=== PATIENT | male | born 1975 | race Caucasian/White ===

== ENCOUNTER 2016-07-18 13:46 | Emergency (ER) | payer MEDICAID, OTHER ==
[2016-07-18 13:51] VITALS: O2SAT 98
[2016-07-18] MEDS ORDERED: Sodium Chloride 0.9% 1,000 ML IV ONE (14:38)
--- NOTE | 2016-07-18 15:01 | RAD ---
HISTORY: cough COMPARISON: No prior. TECHNIQUE: Chest PA and lateral FINDINGS: LUNGS: The lungs are clear. PLEURA: No significant pleural effusion identified. No pneumothorax apparent. CARDIOVASCULAR: Normal. OSSEOUS STRUCTURES: No significant abnormalities. VISUALIZED UPPER ABDOMEN: Normal. OTHER FINDINGS: None. IMPRESSION: No active pulmonary disease.
--- NOTE | 2016-07-18 15:06 | RAD ---
PROCEDURE: Bilateral Knee Radiographs. HISTORY: b/l knee pain COMPARISON: None. FINDINGS: BONES: Right Knee: Normal. No fracture. Left Knee: Normal. No fracture. JOINTS: Right Knee: Normal. No osteoarthritis. Left knee: Normal. No osteoarthritis. SOFT TISSUES: Right Knee: Normal. Left Knee: Normal. JOINT EFFUSION: Right Knee: None. Left Knee: None. OTHER FINDINGS: None. IMPRESSION: Normal examination.
[2016-07-18 15:15] LABS: BASO % 0.6 % (0.0-2.0); EOS # 0.1 K/uL (0.0-0.7); EOS % 1.3 % (0.0-4.0); HEMATOCRIT 43.2 % (35.0-51.0); LYMPH # 0.8 K/uL (1.0-4.3); LYMPH % 12.5 % (20.0-40.0); MEAN CELL VOLUME 85.8 fL (80.0-94.0); MEAN CORPUSCULAR HEMOGLOBIN 28.8 pg (27.0-31.0); MEAN CORPUSCULAR HGB CONC 33.6 g/dL (33.0-37.0); MEAN PLATELET VOLUME 10.2 fL (7.2-11.7); MONO # 0.4 K/uL (0.0-0.8); MONO % 6.4 % (0.0-10.0); RED CELL DISTRIBUTION WIDTH 14.5 % (11.5-14.5); WHITE BLOOD COUNT 6.7 K/uL (4.8-10.8)
--- NOTE | 2016-07-18 15:29 | C.PDOC ---
History Of Present Illness 40-year-old male, past medical history includes HIV (not on any HAART), presents to the emergency department accompanied by sister with complaints of non-traumatic B/L knee pain, chronically for the past 1.5 years, that has worsened over the past two days. Patient notes associated chronic vomiting (x1/ day) for the past several months every day, and several episodes of diarrhea daily x2 years. Pt also c/o productve cough x 1 month. He denies fever, chest pain, SOB, abdominal pain. Time Seen by Provider: 07/18/16 14:03 Chief Complaint (Nursing): Lower Extremity Problem/Injury History Per: Patient, Family History/Exam Limitations: no limitations Onset/Duration Of Symptoms: Persistent Severity: Moderate Past Medical History Reviewed: Historical Data, Nursing Documentation, Vital Signs Vital Signs: Last Vital Signs Temp 98.3 F 07/18/16 17:41 Pulse 81 07/18/16 17:41 Resp 16 07/18/16 17:41 BP 123/85 07/18/16 17:41 Pulse Ox 98 07/18/16 17:49 - Medical History PMH: HIV - [facility] Procedures CLOSURE SKIN & SUBCUTANEOUS NEC (11/18/14) Family History: States: No Known Family Hx - Social History Hx Alcohol Use: Yes Hx Substance Use: No - Immunization History Hx Tetanus Toxoid Vaccination: No Review Of Systems Except As Marked, All Systems Reviewed And Found Negative. Constitutional: Negative for: Fever, Chills Cardiovascular: Negative for: Chest Pain, Palpitations Respiratory: Positive for: Cough. Negative for: Shortness of Breath Gastrointestinal: Positive for: Vomiting, Diarrhea. Negative for: Abdominal Pain Genitourinary: Negative for: Dysuria, Hematuria Musculoskeletal: Positive for: Leg Pain. Negative for: Back Pain Skin: Negative for: Rash Physical Exam - Physical Exam Appears: Well, Non-toxic, No Acute Distress, Chronically Ill (thin appearing) Skin: Warm, Dry, No Rash Head: Normacephalic Eye(s): bilateral: Normal Inspection Oral Mucosa: Moist Tongue: Other (no thrush) Lips: Normal Appearing Neck: Normal, Normal ROM Chest: Symmetrical Cardiovascular: Rhythm Regular Respiratory: Normal Breath Sounds, No Rales, No Rhonchi, No Wheezing Gastrointestinal/Abdominal: Normal Exam, Bowel Sounds, Soft, No Tenderness Extremity: Normal ROM, No Pedal Edema, No Calf Tenderness, Capillary Refill (< 2 sec all digits ), No Deformity, Other (mild diffuse TTP at B/L knees) Extremity: Bilateral: Atraumatic, Normal Color And Temperature, Normal ROM Neurological/Psych: Oriented x3 ED Course And Treatment - Laboratory Results Result Diagrams: 07/18/16 15:08 07/18/16 15:08 O2 Sat by Pulse Oximetry: 98 (RA) Pulse Ox Interpretation: Normal - Other Rad KNEE XRAYS X-Ray: Viewed By Me, Read By Radiologist Interpretation: Accession No. : [id number]. Patient Name / ID : KANE GONZALEZ / [id number]. Exam Date : 07/18/2016 14:43:21 ( Approved ). Study Comment : Sex / Age : M / 40Y. Creator : Bonnie Appiah MD. Dictator : Bonnie Appiah MD. Manager Qa : Loom Inspector : Bonnie Appiah MD. Approver2 : Report Date : 07/18/2016 15:05:19. My Comment : . PROCEDURE: Bilateral Knee Radiographs. HISTORY: b/l knee pain. COMPARISON: None. FINDINGS: BONES: Right Knee: Normal. No fracture. Left Knee: Normal. No fracture. JOINTS: Right Knee: Normal. No osteoarthritis. Left knee: Normal. No osteoarthritis. SOFT TISSUES: Right Knee: Normal. Left Knee: Normal. JOINT EFFUSION: Right Knee: None. Left Knee: None. OTHER FINDINGS: None. IMPRESSION: Normal examination. CXR X-Ray: Viewed By Me, Read By Radiologist Interpretation: Accession No. : [id number]. Patient Name / ID : KANE GONZALEZ / [id number]. Exam Date : 07/18/2016 14:41:18 ( Approved ). Study Comment : Sex / Age : M / 40Y. Creator : Bonnie Appiah MD. Dictator : Bonnie Appiah MD. Manager Qa : Loom Inspector : Bonnie Appiah MD. Approver2 : Report Date : 07/18/2016 14:59:51. My Comment : . HISTORY: cough. COMPARISON: No prior. TECHNIQUE: Chest PA and lateral. FINDINGS: LUNGS: The lungs are clear. PLEURA: No significant pleural effusion identified. No pneumothorax apparent. CARDIOVASCULAR: Normal. OSSEOUS STRUCTURES: No significant abnormalities. VISUALIZED UPPER ABDOMEN: Normal. OTHER FINDINGS: None. IMPRESSION: No active pulmonary disease. Progress Note: Bloodwork,UA, CXR, Knee xrays ordered and reviewed. Patient given iV NS bolus. Patient admits that his knee pain also radiates down into legs, and feels like tingling/pins and needles type pain. 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 PO Tylenol #3 and gabapentin given. Reevaluation Time: 17:40 Reassessment Condition: Improved (On reassessment, patient is comfortable and states he feels better. CXR (-) for infiltrates, KNee Xrays also (-). No obvious HIV related infections on physical exam, CXR, and vitals are normal. Some time was spent with patient trying to convince him to follow up in the medical clinic and begain HAART. HIV test and viral load ordered, and pending at discharge - patient understands he needs to follow up in the clinic for results. He was given Rx for gabapentin, naprosyn, tylenol #3. Patient understands the need for timely followup, and he was instructed to return to ED if symptoms worsen.) Disposition Counseled Patient/Family Regarding: Studies Performed, Diagnosis, Need For Followup, Rx Given - Disposition Referrals: [facility] [Outside] [facility] [Outside] Disposition: HOME/ ROUTINE Disposition Time: 17:40 Condition: STABLE Additional Instructions: FOLLOW UP WITH MEDICAL CLINIC IN 1-2 DAYS USE MEDICATIONS DIRECTED RETURN TO ER IF SYMPTOMS WORSEN Prescriptions: Naproxen [Naprosyn Tab] 375 mg PO BID PRN #20 tab PRN Reason: pain Gabapentin [Neurontin] 100 mg PO TID #35 cap Acetaminophen with Codeine [Tylenol with Codeine #3 Tablet] 1 each PO Q6 PRN # 15 tablet PRN Reason: pain Ondansetron [Zofran Odt] 4 mg PO Q8 PRN #15 odt PRN Reason: Nausea/Vomiting Instructions: HIV Infection (ED), Knee Pain (ED), Leg Pain (ED) Forms: General Discharge Instructions Print Language: WELSH - Clinical Impression Clinical Impression: HIV (human immunodeficiency virus infection), Knee pain, bilateral, Leg pain, Neuropathy, Nausea - Scribe Statement The provider has reviewed the documentation as recorded by the Alfonso Celis All medical record entries made by the Leandroibgerry were at my direction and personally dictated by me. I have reviewed the chart and agree that the record accurately reflects my personal performance of the history, physical exam, medical decision making, and the department course for this patient. I have also personally directed, reviewed, and agree with the discharge instructions and disposition.
[2016-07-18 15:41] LABS: CHLORIDE 98 mmol/L (98-107); POTASSIUM 4.9 mmol/L (3.6-5.2); SODIUM 142 mmol/L (132-148)
[2016-07-18 15:43] LABS: BILIRUBIN,TOTAL 0.8 mg/dL (0.2-1.3); GFR AFRICAN-AMERICAN > 60
[2016-07-18 15:44] LABS: ALB/GLOB RATIO 0.9 (1.0-2.1); ALKALINE PHOSPHATASE 120 U/L (38-126); ALT/SGPT 108 U/L (21-72); AST/SGOT 269 U/L (17-59); BLOOD UREA NITROGEN 6 mg/dL (9-20); CALCIUM 8.7 mg/dl (8.6-10.4); CARBON DIOXIDE 30 mmol/L (22-30); GLUCOSE,RANDOM 98 mg/dL (75-110); TOTAL PROTEIN 8.4 g/dL (6.3-8.3)
[2016-07-18 16:39] LABS: RBC URINE < 1 /hpf (0-3); URINE BILIRUBIN NEGATIVE (NEGATIVE); URINE BLOOD NEGATIVE (NEGATIVE); URINE COLOR Yellow (YELLOW); URINE GLUCOSE (UA) NORMAL (Normal); URINE KETONE NEGATIVE (NEGATIVE); URINE LEUKOCYTE ESTERASE NEG Leu/uL (Negative); URINE PROTEIN NEGATIVE (NEGATIVE); WBC URINE < 1 /hpf (0-5)
[2016-07-18] MEDS ORDERED: Acetaminophen-Codeine 300/30 mg Tab PO STA (17:31)
[2016-07-18] MEDS ORDERED: Acetaminophen-Codeine 300/30 mg Tab PO ONE (17:38)
[2016-07-18 17:41] VITALS: BP 123/85; PULSE 81; RESP 16; TEMP 98.3
== END 2016-07-18 17:47 | disposition home or self-care (01) ==
LOC: C.ER 13:46
DX: B20 Human immunodeficiency virus [HIV] disease (principal); M25.562 Pain in left knee; M25.561 Pain in right knee; G62.9 Polyneuropathy, unspecified
CPT/HCPCS: 71020; 73562; 80053; 81001; 83615; 85025; 86703; 87040; 87086; 87536; 96360; 99285; J7040

== ENCOUNTER 2016-10-10 15:38 | Inpatient (IN) | payer MEDICAID, OTHER ==
[2016-10-10 15:51] VITALS: BMI 22.8
[2016-10-10] MEDS ORDERED: Naloxone 0.4 mg/ml Inj (Adult) IVP STA (15:51)
[2016-10-10] MEDS ORDERED: Sodium Chloride 0.9% 1,000 ML IV ONE (15:51)
[2016-10-10] MEDS ORDERED: Naloxone 0.4 mg/ml Inj (Adult) ONE (15:54)
[2016-10-10] MEDS ORDERED: Sodium Chloride 0.9% 1,000 ML ONE (16:05)
[2016-10-10 16:06] LABS: BASO # 0.1 K/uL (0.0-0.2); BASO % 1.3 % (0.0-2.0); EOS # 0.1 K/uL (0.0-0.7); HEMATOCRIT 40.9 % (35.0-51.0); LYMPH # 0.9 K/uL (1.0-4.3); LYMPH % 19.3 % (20.0-40.0); MEAN CELL VOLUME 87.5 fL (80.0-94.0); MEAN CORPUSCULAR HEMOGLOBIN 29.1 pg (27.0-31.0); MEAN CORPUSCULAR HGB CONC 33.3 g/dL (33.0-37.0); MONO # 0.5 K/uL (0.0-0.8); MONO % 9.8 % (0.0-10.0); NRBC % 0.1 % (0.0-2.0); RED CELL DISTRIBUTION WIDTH 15.2 % (11.5-14.5); WHITE BLOOD COUNT 4.9 K/uL (4.8-10.8)
[2016-10-10 16:22] LABS: CHLORIDE 106 mmol/L (98-107); POTASSIUM 3.7 mmol/L (3.6-5.2); SODIUM 142 mmol/L (132-148)
[2016-10-10 16:24] LABS: BILIRUBIN,TOTAL 0.6 mg/dL (0.2-1.3); GFR AFRICAN-AMERICAN > 60
[2016-10-10 16:25] LABS: ALKALINE PHOSPHATASE 104 U/L (38-126); ALT/SGPT 58 U/L (21-72); AST/SGOT 124 U/L (17-59); BLOOD UREA NITROGEN 5 mg/dL (9-20); CALCIUM 7.8 mg/dl (8.6-10.4); CARBON DIOXIDE 23 mmol/L (22-30); GLUCOSE,RANDOM 83 mg/dL (75-110); TOTAL PROTEIN 8.1 g/dL (6.3-8.3)
[2016-10-10 16:36] LABS: ALCOHOL SERUM 337 mg/dl (0-10)
[2016-10-10 16:42] LABS: URINE BILIRUBIN NEGATIVE (NEGATIVE); URINE BLOOD NEGATIVE (NEGATIVE); URINE COLOR Straw (YELLOW); URINE GLUCOSE (UA) NORMAL (Normal); URINE KETONE NEGATIVE (NEGATIVE); URINE LEUKOCYTE ESTERASE NEG Leu/uL (Negative); URINE PROTEIN NEGATIVE (NEGATIVE); URINE UROBILINOGEN NORMAL mg/dL (0.2-1.0)
[2016-10-10] MEDS ORDERED: Multivitamin (MVI) 10 ML, Thiamine 100 MG, Folic Acid 1 MG in Sodium Chloride 0.9% 1,00... IV STA (17:19)
--- NOTE | 2016-10-10 17:43 | C.PDOC ---
Time Seen by Provider: 10/10/16 15:48 Chief Complaint (Nursing): Substance Abuse Past Medical History Vital Signs: Last Vital Signs Temp 97.2 F L 10/10/16 15:47 Pulse 107 H 10/10/16 17:23 Resp 20 10/10/16 17:23 BP 104/65 10/10/16 17:23 Pulse Ox 98 10/10/16 17:23 - Medical History PMH: Anxiety, Depression, HIV, HTN - [facility] Procedures CLOSURE SKIN & SUBCUTANEOUS NEC (11/18/14) Family History: States: Unknown Family Hx - Social History Hx Alcohol Use: Yes Hx Substance Use: No - Immunization History Hx Tetanus Toxoid Vaccination: No ED Course And Treatment - Laboratory Results Result Diagrams: 10/10/16 15:57 10/10/16 15:57 O2 Sat by Pulse Oximetry: 98
--- NOTE | 2016-10-10 17:47 | C.PDOC ---
History Of Present Illness Family called 911 because he took "a bunch" of his 15mg Remeron pills in front of them in an intentional overdose. They estimate around 7 pills to "half a bottle". Time Seen by Provider: 10/10/16 15:48 History Per: Patient, Family History/Exam Limitations: clinical condition, intoxication Onset/Duration Of Symptoms: Hrs (1) Current Symptoms Are (Timing): Still Present Suicide/Self Injury Attempted (Context): Ingestion Ingestion Of Substance: Remeron Modifying Factor(s): Alcohol Severity: Severe Past Medical History Reviewed: Historical Data, Nursing Documentation, Vital Signs Vital Signs: Last Vital Signs Temp 97.2 F L 10/10/16 15:47 Pulse 107 H 10/10/16 17:23 Resp 20 10/10/16 17:23 BP 104/65 10/10/16 17:23 Pulse Ox 98 10/10/16 17:23 - Medical History PMH: Anxiety, Depression, HIV, HTN - [facility] Procedures CLOSURE SKIN & SUBCUTANEOUS NEC (11/18/14) Family History: States: Unknown Family Hx - Social History Hx Alcohol Use: Yes Hx Substance Use: No - Immunization History Hx Tetanus Toxoid Vaccination: No Review Of Systems Review Of Systems: ROS cannot be obtained secondary to pt's inabilty to answer questions. Physical Exam - Physical Exam Appears: Other (Pt is obtunded) Skin: Normal Color, Warm, Dry Head: Atraumatic, Normacephalic Eye(s): bilateral: PERRL (small pupils) Neck: Normal ROM, No Midline Cervical Tenderness, No Step Off Deformity, Supple Chest: Symmetrical Cardiovascular: Rhythm Regular Respiratory: Normal Breath Sounds, No Accessory Muscle Use Gastrointestinal/Abdominal: Soft Extremity: No Deformity Neurological/Psych: Eyes Open With Command, Other (Moving all extremities) Pain Response: Withdraws With Pain ED Course And Treatment - Laboratory Results Result Diagrams: 10/10/16 15:57 10/10/16 15:57 Interpretation Of Abnormal: Elevatd alcohol level. ECG: Interpreted By Me, Viewed By Me ECG Rhythm: Sinus Rhythm, Nonspecific Changes Rate From EC O2 Sat by Pulse Oximetry: 87 (on RA) Pulse Ox Interpretation: Abnormal - Radiology CXR: Interpreted by Me, Viewed By Me CXR Interpretation: Yes: No Acute Disease Progress Note: Pt d/w Lynn at [facility]. She recommended supportive care, but states the the half-like of Remeron is long (20 hours). - Physician Consult Information Physician Contacted: Steven Martinez (ICU) Outcome Of Conversation: He accepted pt to ICU. Progress - Interventions Interventions:: Observation, Intravenous fluid, Oxygen - Data Reviewed Data Reviewed: Lab, Diagnostic imaging, EKG, Old records - Patient Status Patient status: Partially improved - Critical Care Citical Care: Excluding Proc Time Critical Care Time: 45 minutes - Continuity of Care Discussed patient case with:: Family-HIPPA compliant, ED Nurse, On-call PMD-pt unassigned Discussed pt. case with clothing consultant/specialty: Pulmonary/Crit. Care - Patient Plan Patient Plan: Admission, ICU Disposition Discussed With Dr.: Edmund Robbins Comment: He accepted pt on his service. Doctor Will See Patient In The: Hospital Counseled Patient/Family Regarding: Studies Performed, Diagnosis - Disposition Disposition: HOSPITALIZED Disposition Time: 17:51 Condition: GUARDED - Clinical Impression Clinical Impression: Intentional overdose of drug in tablet form, Alcohol intoxication
[2016-10-10] MEDS: Potassium Chloride 10 MEQ in Dextrose 5%/0.9% NS 1,000 ML IV SCH ×2 (20:15→22:25)
--- NOTE | 2016-10-10 20:37 | CP.PCM.CON ---
History of Present Illness - History of Present Illness History of Present Illness: Attending: Itzel Shaffer MD PCP: Eyad Maravilla MD Reason for consult: critical care Management Chief Complaint: Overdose on Remeron HPI: The hx was obtained from the Patient's family and the medical records. He is a 41 years old male with Hx of HIV not on HAART Depression with previous Suicide attempt and multiple ED visits for Alcohol Intoxication, Brought to the ED because of ingesting a handful of Remeron 15mg tablets, approximately 7 tablets. The patient was drinking alcohol prior to this. In the ED he was only responsive to painful stimuli. PMH: Anxiety, Depression; HIV; HTN; Bilateral Knee pains; Neuropathy PSH: No known surgical History SH; Alcohol abuse; light smoker; Substance abuse; Live with family FH: Unknown family hx Allergies: NKDA Review of Systems - Review of Systems Systems not reviewed;Unavailable: Intoxicated Review of Systems: Review of systems is limited because of patient being Unresponsive Past Patient History - Past Medical History & Family History Past Medical History?: Yes - Past Social History Smoking Status: Light Smoker < 10 Cigarettes Daily Chewing Tobacco Use: No Cigar Use: No Alcohol: > 2 Drinks/Day Home Situation {Lives}: With Family - CARDIAC Hx Hypertension: Yes - PULMONARY Hx Respiratory Disorders: No - NEUROLOGICAL Hx Neurological Disorder: No - HEENT Hx HEENT Problems: No - RENAL Hx Chronic Kidney Disease: No - ENDOCRINE/METABOLIC Hx Endocrine Disorders: No - HEMATOLOGICAL/ONCOLOGICAL Hx Human Immunodeficiency Virus (HIV): Yes - INTEGUMENTARY Hx Dermatological Problems: No - MUSCULOSKELETAL/RHEUMATOLOGICAL Hx Falls: Yes - GASTROINTESTINAL Hx Gastrointestinal Disorders: No - GENITOURINARY/GYNECOLOGICAL Hx Genitourinary Disorders: No - PSYCHIATRIC Hx Anxiety: Yes Hx Depression: Yes Hx Substance Use: Yes - SURGICAL HISTORY Hx Surgeries: No - ANESTHESIA Hx Anesthesia: No Meds Allergies/Adverse Reactions: Allergies Allergy/AdvReac Type Severity Reaction Status Date / Time No Known Allergies Allergy Verified 10/10/16 16:00 - Medications Medications: Current Medications Enoxaparin Sodium (Lovenox) 40 mg SC DAILY SONYA Multivitamins/Vitamin C 10 ml/Thiamine HCl 100 mg/ Folic Acid 1 mg/ Sodium Chloride 1,011.2 mls @ 250 mls/hr IV .Q4H3M STA Stop: 10/10/16 21:21 Last Admin: 10/10/16 18:30 Dose: 250 mls/hr Potassium Chloride 10 meq/ (Dextrose/Sodium Chloride) 1,005 mls @ 150 mls/hr IV .Q6H42M [facility] Stop: 10/11/16 09:38 Physical Exam - Constitutional Appears: No Acute Distress Additional comments: Appears sleeping. - Head Exam Head Exam: ATRAUMATIC, NORMAL INSPECTION, NORMOCEPHALIC - Eye Exam Pupil Exam: Miosis Additional comments: No spontaneous opening of eyes nor to painful stimuli - ENT Exam ENT Exam: Mucous Membranes Moist, Normal External Ear Exam - Neck Exam Neck exam: Positive for: Normal Inspection. Negative for: Lymphadenopathy - Respiratory Exam Respiratory Exam: Clear to Auscultation Bilateral. absent: Rales, Rhonchi, Wheezes - Cardiovascular Exam Cardiovascular Exam: REGULAR RHYTHM, RRR, +S1, +S2. absent: Gallop - GI/Abdominal Exam GI & Abdominal Exam: Hypoactive Bowel Sounds, Soft. absent: Mass, Organomegaly - Rectal Exam Rectal Exam: Deferred - Extremities Exam Extremities exam: Positive for: normal inspection. Negative for: joint swelling , pedal edema - Back Exam Back exam: NORMAL INSPECTION - Neurological Exam Additional comments: No Spontaneous opening of eyes even with painful stimuli. Unresponsive to verbal commands. Responds to painful stimuli., Pupils still pin pointed with sluggish reaction to light. no facial droop, DTR conserved. No focial neurological findings. A Doc score of 6 - Skin Skin Exam: Dry, Intact, Normal Color, Warm Results - Vital Signs Recent Vital Signs: Last Vital Signs Temp 97.3 F L 10/10/16 19:00 Pulse 98 H 10/10/16 19:00 Resp 20 10/10/16 19:00 BP 117/73 10/10/16 18:41 Pulse Ox 98 10/10/16 19:00 - Labs Result Diagrams: 10/10/16 15:57 10/10/16 15:57 - Impressions Impression: NSR 109/min - Imaging and Cardiology Chest x-ray Status: Image reviewed by me Additional comment: No infiltrated Assessment & Plan - Assessment and Plan (Free Text) Assessment: #. Drug Overdose #. Alcoholic Intoxication #. Depressive disorder #. HIV+ve Plan: 41 years old male with Hx of HIV not on HAART Depression with previous Suicide attempt and multiple ED visits for Alcohol Intoxication, Brought to the ED because of ingesting a handful of Remeron 15mg tablets, approximately 7 tablets. In the ED he was only responsive to painful stimuli. #. Drug Overdose with Remeron in a Suicide Attempt - Admit ot ICU - Cardiac monitoring/ Seizure Precaution - IV Fluids NS at 150mls/hr - Psychiatry consult with Dr Ngo - follow electrolytes #. Alcoholic Intoxication - Banana bag with Thiamine/MV/folic acid - Patient will need IV Ativan for Agitation PRN #. Depressive disorder - Psychiatry on consult #. HIV+ve - Patient is not on HAART medication #. Stress Ulcer prophylaxis with Pepcid #. DVT Prophylaxis with Lovenox #. Code Status: Full - Date & Time Date: 10/10/16 Time: 20:37
[2016-10-11] MEDS: Potassium Chloride 10 MEQ in Dextrose 5%/0.9% NS 1,000 ML IV SCH ×2 (02:57→05:47)
[2016-10-11 07:18] LABS: BASO % 1.4 % (0.0-2.0); EOS # 0.1 K/uL (0.0-0.7); HEMATOCRIT 40.1 % (35.0-51.0); LYMPH # 0.4 K/uL (1.0-4.3); LYMPH % 13.7 % (20.0-40.0); MEAN CELL VOLUME 88.8 fL (80.0-94.0); MEAN CORPUSCULAR HEMOGLOBIN 29.4 pg (27.0-31.0); MEAN CORPUSCULAR HGB CONC 33.1 g/dL (33.0-37.0); MEAN PLATELET VOLUME 9.2 fL (7.2-11.7); MONO # 0.4 K/uL (0.0-0.8); MONO % 10.9 % (0.0-10.0); NRBC % 0.1 % (0.0-2.0); RED CELL DISTRIBUTION WIDTH 14.9 % (11.5-14.5); WHITE BLOOD COUNT 3.2 K/uL (4.8-10.8)
[2016-10-11 07:34] LABS: CHLORIDE 112 mmol/L (98-107); POTASSIUM 4.3 mmol/L (3.6-5.2); SODIUM 144 mmol/L (132-148)
[2016-10-11 07:36] LABS: BILIRUBIN,TOTAL 0.6 mg/dL (0.2-1.3); GFR AFRICAN-AMERICAN > 60
[2016-10-11 07:37] LABS: ALB/GLOB RATIO 0.9 (1.0-2.1); ALKALINE PHOSPHATASE 93 U/L (38-126); ALT/SGPT 47 U/L (21-72); AST/SGOT 120 U/L (17-59); BLOOD UREA NITROGEN 3 mg/dL (9-20); CALCIUM 7.6 mg/dl (8.6-10.4); CARBON DIOXIDE 25 mmol/L (22-30); TOTAL PROTEIN 6.8 g/dL (6.3-8.3)
[2016-10-11 07:38] LABS: ALCOHOL SERUM 11 mg/dl (0-10)
[2016-10-11 08:05] LABS: GLUCOSE,RANDOM 314 mg/dL (75-110)
[2016-10-11] MEDS ORDERED: Enoxaparin 40 mg Syringe SC SCH (10:00)
[2016-10-11] MEDS ORDERED: ODEFSEY PO SCH ×3 (11:00→13:15)
[2016-10-11] MEDS ORDERED: Tmp-Smz 800 mg-160 mg DS Tab PO SCH (12:15)
[2016-10-11] MEDS ORDERED: Albuterol HFA 90 mcg/actuation (8 g) INH PRN (12:15)
--- NOTE | 2016-10-11 12:28 | RAD ---
PROCEDURE: CHEST RADIOGRAPH, 1 VIEW HISTORY: Overdosed COMPARISON: 07/18/2016 FINDINGS: LUNGS: Clear. PLEURA: No pneumothorax or pleural fluid seen. CARDIOVASCULAR: Normal. OSSEOUS STRUCTURES: No significant abnormalities. VISUALIZED UPPER ABDOMEN: Normal. OTHER FINDINGS: None. IMPRESSION: No active disease.
--- NOTE | 2016-10-11 13:56 | CP.PCM.HP ---
History of Present Illness - History of Present Illness History of Present Illness: COMPREHENSIVE HISTORY & PHYSICAL EXAM HPI PT DEPRESSED AND DRANK ALCOHOL AND HALF A BOTTLE OF REMERON , 15 MG. PT WAS DROSWSY IN ER WITH N RESPIRATION HAS PREVIOUS H/O DO PAST HIST. HIV PERSONAL HIST: Smoking. N Alcohol. YES Allergy N Travel_ - . FAMILY HIST : ROS : PT DWOSY P/E: Constitutional: Appears stated age and in no apparent distress. Head: Normocephalic. Ears: External ear canals patent without inflammation. Tympanic membranes intact with normal light reflex and landmark. Eyes: Pupils are central, bilaterally equal, symmetrical and reacts to light with normal movements and no icterus or pallor. Nose: External nares are patent. Mucosa is pink Mouth-Throat: Good general appearance and condition. No post-pharyngeal/oropharyngeal erythema and tonsillar hypertrophy. Good dental hygiene. Neck-Lymphatic: Neck is supple with normal ROM, no thyromegaly, lymph nodes or masses. JVD is normal with no carotid bruit. Lungs: Clear to percussion and auscultation with bilateral normal air entry. Cardiovascular: S1 and S2 are normal with no murmurs, gallops and rub. GI Exam: No hepatomegaly. Abdomen is soft and non-tender. No Organomegaly , masses or hernias are evident and bowel sounds are normal and active. Neurology: Higher function and all cranial nerves intact, with no gross motor or sensory deficit. Superficial and deep reflexes are normal with downwards planters. No cerebellar deficit with normal gait. Musculoskeletal: No tender spots with normal curvature of the spine with no swelling or restricted ROM of the small and large joints. Extremities: Homans sign absent. Intact pulses with no pitting edema, calf tenderness or skin color changes. Skin: No rash, eruptions or abnormal skin pigmentation LAB/RADIOLOGY: ASSESMENT : DO , REMERON WITH INTACT REPIRATION HIV PLAN: MONITOR IN ICU PER POISON CONTROL PROTOCOL Present on Admission - Present on Admission Any Indicators Present on Admission: No Past Patient History - Past Medical History & Family History Past Medical History?: Yes - Past Social History Smoking Status: Light Smoker < 10 Cigarettes Daily Chewing Tobacco Use: No Cigar Use: No Alcohol: > 2 Drinks/Day Home Situation {Lives}: With Family - CARDIAC Hx Hypertension: Yes - PULMONARY Hx Respiratory Disorders: No - NEUROLOGICAL Hx Neurological Disorder: No - HEENT Hx HEENT Problems: No - RENAL Hx Chronic Kidney Disease: No - ENDOCRINE/METABOLIC Hx Endocrine Disorders: No - HEMATOLOGICAL/ONCOLOGICAL Hx Human Immunodeficiency Virus (HIV): Yes - INTEGUMENTARY Hx Dermatological Problems: No - MUSCULOSKELETAL/RHEUMATOLOGICAL Hx Falls: Yes - GASTROINTESTINAL Hx Gastrointestinal Disorders: No - GENITOURINARY/GYNECOLOGICAL Hx Genitourinary Disorders: No - PSYCHIATRIC Hx Anxiety: Yes Hx Depression: Yes Hx Substance Use: Yes - SURGICAL HISTORY Hx Surgeries: No - ANESTHESIA Hx Anesthesia: No Meds Allergies/Adverse Reactions: Allergies Allergy/AdvReac Type Severity Reaction Status Date / Time No Known Allergies Allergy Verified 10/10/16 16:00 Results - Vital Signs Recent Vital Signs: Last Vital Signs Temp 98.4 F 10/11/16 12:00 Pulse 95 H 10/11/16 13:41 Resp 15 10/11/16 13:41 BP 146/105 H 10/11/16 13:41 Pulse Ox 100 10/11/16 13:41 - Labs Result Diagrams: 10/11/16 07:11 10/11/16 07:11 Labs: Laboratory Results - last 24 hr 10/10/16 10/11/16 10/11/16 22:56 07:11 07:11 WBC 3.2 L RBC 4.52 Hgb 13.3 Hct 40.1 MCV 88.8 MCH 29.4 MCHC 33.1 RDW 14.9 H Plt Count 151 MPV 9.2 Neut % (Auto) 71.0 Lymph % (Auto) 13.7 L Towns % (Auto) 10.9 H Eos % (Auto) 3.0 Baso % (Auto) 1.4 Neut # 2.3 Lymph # 0.4 L Towns # 0.4 Eos # 0.1 Baso # 0.0 Sodium 144 Potassium 4.3 Chloride 112 H Carbon Dioxide 25 Anion Gap 11 BUN 3 L Creatinine 0.6 L Est GFR ( Amer) > 60 Est GFR (Non-Af Amer) > 60 Random Glucose 314 H Calcium 7.6 L Magnesium 1.6 Total Bilirubin 0.6 AST 120 H ALT 47 Alkaline Phosphatase 93 Total Protein 6.8 Albumin 3.2 L Globulin 3.5 Albumin/Globulin Ratio 0.9 L Alcohol, Quantitative 11 H
[2016-10-11 16:16] VITALS: BP 142/95
[2016-10-11 16:17] VITALS: TEMP 94.4
[2016-10-11 17:27] VITALS: PULSE 87
--- NOTE | 2016-10-11 18:38 | PCM.PSYCH ---
Initial Psychiatric Evaluation - Initial Psychiatric Evaluation Legal Status: Capacity Chief Complaint (in patient's own words): I WAS NOT TRYING TO KILL MYSELF,WHY AM I IN ICU? Patient's Reaction to Hospitalization: i DON'T NEED TO BE IN THE HOSPITAL, History of Present Illness and Precipitating Events: PT IS A 41BYEAR OLD MALE WHO LIVES WITH HIS MOTHER AND IS CURRENTLY UNEMPLOYED, PT STATED THAT HE DRANK SEVERAL PINTS OF ALCOHOL AND TOOK SEVERAL REMERON BECAUSE HE WANTED TO GET HIGH. PT STATES TAT HE HAS DRANK ALCOHOL AND TAKING XANAX TO GET HIGH IN THE PAST. PT IS PRESCRIBED NEURONTIN AND REMERON BY HIS PCP. PT RELATES THAT HE BUYS THE XANAX OFF THE STREET. PT STATES THAT HE STARTING DRINKING ALCOHOL A TEENAGER BUT IT DID NOT BECOME A PROBLEM UNTIL HE WAS 25 YEARS OLD. PT ALSO DECLARES THAT HE DOES NOT DRINK ALCOHOL EVERY DAY BUT GOES ON BINGES AND THEN DOES NOT DRINK FOR DAYS OR WEEKS, PT STATES THAT ON A BAD DAY HE DRINKS 2 PINTS AND ON BAD DAYS HE DRINKS 3 PINTS. PT HAS BEEN ARRESTED FOR PARAPHERNALIA; HOWEVER, HE HAS NEVER BEEN CONVICTED. PT HAS WORKED A [employer] IN THE PAST. PT HAS MHIV. HE STATED THAT HE HAD BEEN TAKING HIS ANTIVIRALS EVEN THOUGH IN THE MEDICAL RECORD IT SAYS HE WAS NOT. PT HAS AN OLDER SISTER. HIS FATHER IS . PER PT, MANY MATERNAL RELATIVES HAVE A SUBSTANCE ABUSE PROBLEM. PT WANTS TO BE DISCHARGED. IN MY OPINION WITH A FAIR DEGREES OF MEDICAL CERTAINTY LISA MIDDLETON HAS CAPACITY TO MAKE MEDICAL DECISIONS AND CURRENTLY HE IS NOT A DANGER TO HIMSELF OR OTHERS. HOWEVER THIS IS NO GUARANTEE FOR THE FUTURE. THE BEST PREDICATOR OF FUTURE BEHAVIOR IS PAST BEHAVIOR Current Medications: Active Medications Generic Name Dose Route Start Last Admin Trade Name Freq PRN Reason Stop Dose Admin Albuterol 1 puff 10/11/16 12:15 10/11/16 15:45 Ventolin Hfa 90 Mcg/Actuation (8 G) INH 1 puff RQ4 PRN Administration Shortness of Breath Enoxaparin Sodium 40 mg 10/11/16 10:00 10/11/16 10:47 Lovenox SC 40 mg DAILY SONYA Administration Famotidine 20 mg 10/10/16 22:00 10/11/16 10:48 Pepcid IVP 20 mg Q12 SONYA Administration Gabapentin 300 mg 10/11/16 14:00 10/11/16 17:14 Neurontin PO 300 mg TID SONYA Administration Home Med 1 tab 10/11/16 13:15 10/11/16 14:02 Patient's Own Medication PO 1 tab DAILY SONYA Administration Lorazepam 1 mg 10/11/16 12:15 10/11/16 17:15 Ativan IVP 1 mg Q4H PRN Administration Agitation Metoprolol Tartrate 50 mg 10/11/16 12:15 10/11/16 17:14 Lopressor PO 50 mg BID SONYA Administration Trimethoprim/Sulfamethoxazole 1 tab 10/11/16 12:15 10/11/16 12:30 Bactrim Ds Tab PO 1 tab Q12H SONYA Administration Past Psychiatric History - Past Psychiatric History Prior Professional Help: PER HISTORY NOF PRESENT ILLNESS Pertinent Medical Hx (Current Medical&Sleep Prob, Allergies): Allergies Allergy/AdvReac Type Severity Reaction Status Date / Time No Known Allergies Allergy Verified 10/10/16 16:00 Gabapentin [Neurontin] 100 mg PO TID #35 cap 07/18/16 Emtricitab/Rilpiviri/Tenof Ala [Odefsey Tablet] 1 each PO DAILY 10/10/16 Metoprolol Tartrate [Lopressor] 100 mg PO DAILY 10/10/16 Review of Systems - Constitutional Constitutional: Malaise - EENT Eyes: UNREMARKABLE Ears: UNREMARKABLE Nose/Mouth/Throat: UNREMARKABLE - Cardiovascular Cardiovascular: UNREMARKABLE - Respiratory Respiratory: UNREMARKABLE - Gastrointestinal Gastrointestinal: UNREMARKABLE - Musculoskeletal Additional comments: BILATERAL KNEE PROBLEMS - Integumentary Integumentary: UNREMARKABLE - Neurological Neurological: UNREMARKABLE - Psychiatric Psychiatric: UNREMARKABLE - Endocrine Endocrine: UNREMARKABLE - Hematologic/Lymphatic Hematologic: Other Additional comments: HIV+ Mental Status Examination - Personal Presentation Personal Presentation: Looks stated age - Affect Affect: Broad - Motor Activity Motor Activity: Calm - Reliability in Providing Information Reliability in Providing Information: Good - Speech Speech: Organized, Relevant, Coherent - Mood Mood: Neutral - Formal Thought Process Formal Thought Process: No Impairment - Obsessions/Compulsions Obsessions: None Compulsions: None - Cognitive Functions Orientation: Person, Place, Situation, Time Sensorium: Alert Attention/Concentration: Attentive Abstract Thinking: As evidence by literal perception of proverbs Estimate of Intelligence: Average Judgement: Intact, as evidence by: Good judgement Memory: Recent intact, as evidence by: Ability to recall events of the day, Remote intact, as evidenced by: Abilit to recall sig. life events - Risk Risk: Other - Strength & Assets Inventory Strength & Assets Inventory: Intelligence, Family support, Employment history - Limitations Limitations: Other DSM 5 DX - DSM 5 DSM 5 Diagnosis: MOOD DISORDER DUE TO A GENERAL MEDICAL CONDITION ALCOHOL USE DISORDER SUICIDALITY HIV STATUS - Recommended/Plan of Treatment Treatment Recommendations and Plan of Treatment: MOOD DISORDER DUE VTO A GENERAL MEDICAL CONDITION CONTINUE REMERON AND NEUROTIN ALCOHOL USE DISORDER ENCOURAGE SOBRIETY SUICIDALITY DISCONTINUE 1:1 HIV STATUS CONTINUE ANTIVIRALS Projected ELOS: PT WANTS TO LEAVE TODAY Prognosis: FAIR Discharge Plan and Discharge Criteria: PT IS BEIND DISCHARGED AGAINST MEDICAL ADVICE - Smoking Cessation Smoking Cessation Initiated: No
[2016-10-11 18:59] VITALS: RESP 20; O2SAT 97
--- NOTE | 2016-10-11 20:29 | CP.PCM.PN ---
Subjective - Date & Time of Evaluation Date of Evaluation: 10/11/16 Time of Evaluation: 20:29 - Subjective Subjective: Called by nurse informing of Patient's request to sign out against medical advise. Patient seen awake, alert, oriented stating that that he wanted to sign out and leave the hospital. He was advised to remain until tomorrow for some more cardiac monitoring. He refused. He was told of the possibility of Alcohol withdrawal symptoms, Tremors, Seizures , Delirium and the fact that he needs to follow up with Psychiatry. Psychiatry cleared him to be competent and so he was allowed to sign AMA. Chung Mckeon MD Hospitalist. Objective - Vital Signs/Intake and Output Vital Signs (last 24 hours): Temp Pulse Resp BP Pulse Ox 94.4 F L 87 20 142/95 H 97 10/11/16 16:00 10/11/16 18:13 10/11/16 18:13 10/11/16 15:41 10/11/16 17:50 Intake and Output: 10/11/16 10/12/16 18:59 06:59 Intake Total 1600 Output Total 2 Balance 1598 - Labs Labs: 10/11/16 07:11 10/11/16 07:11
== END 2016-10-11 19:00 | disposition left against medical advice (07) | DRG 449 ==
LOC: C.ER 15:38 → C.9I 17:53
PROVIDERS: ADMIT Internal Medicine Cardiovascular Disease; ATTEND Internal Medicine Cardiovascular Disease
PROC: HZ2ZZZZ Detoxification Services for Substance Abuse Treatment (ICD-10-PCS; principal; 2016-10-10)
DX: T43.022A Poisoning by tetracyclic antidepressants, intentional self-harm, initial encounter (principal); F06.30 Mood disorder due to known physiological condition, unspecified; F10.220 Alcohol dependence with intoxication, uncomplicated; I10 Essential (primary) hypertension; Z21 Asymptomatic human immunodeficiency virus [HIV] infection status; Y90.8 Blood alcohol level of 240 mg/100 ml or more; R40.0 Somnolence; F41.9 Anxiety disorder, unspecified; F32.9 Major depressive disorder, single episode, unspecified; F17.210 Nicotine dependence, cigarettes, uncomplicated

== ENCOUNTER 2016-11-25 21:31 | Inpatient (IN) | payer MEDICAID, OTHER ==
[2016-11-25 21:31] VITALS: BMI 22.8
--- NOTE | 2016-11-25 22:34 | C.PDOC ---
History Of Present Illness Patient presents to the ER as a prescreen for detox from ETOH, last drink was 2 hours. Denies physical complaints at this time. Time Seen by Provider: 11/25/16 22:33 Chief Complaint (Nursing): Substance Abuse History Per: Patient History/Exam Limitations: no limitations Onset/Duration Of Symptoms: Hrs Current Symptoms Are (Timing): Still Present Suicide/Self Injury Attempted (Context): None Modifying Factor(s): Alcohol Severity: None Pain Scale Rating Of: 0 Associated Symptoms: denies: Depression, Suicidal Thoughts, Suicidal Plan Involuntary Hold By: None Recent travel outside of the [place]: No Past Medical History Reviewed: Historical Data, Nursing Documentation, Vital Signs Vital Signs: Last Vital Signs Temp 97.7 F 11/25/16 21:58 Pulse 97 H 11/25/16 21:58 Resp 16 11/25/16 21:58 BP 111/75 11/25/16 21:58 Pulse Ox 95 11/26/16 00:53 - Medical History PMH: Anxiety, Depression, HIV, HTN Surgical History: No Surg Hx - [facility] CLOSURE SKIN & SUBCUTANEOUS NEC (11/18/14) DETOXIFICATION SERVICES FOR SUBSTANCE ABUSE TREATMENT (10/10/16) Family History: States: No Known Family Hx - Social History Hx Alcohol Use: Yes Hx Substance Use: Yes - Immunization History Hx Tetanus Toxoid Vaccination: No Review Of Systems Constitutional: Negative for: Fever, Chills Gastrointestinal: Negative for: Nausea, Vomiting, Diarrhea Physical Exam - Physical Exam Appears: Non-toxic Skin: Warm, Dry Oral Mucosa: Moist Chest: Symmetrical, No Tenderness Cardiovascular: Rhythm Regular, No Murmur Respiratory: No Rales, No Rhonchi, No Wheezing Gastrointestinal/Abdominal: Soft, No Tenderness Neurological/Psych: Oriented x3 ED Course And Treatment - Laboratory Results Result Diagrams: 11/25/16 22:41 11/25/16 22:41 O2 Sat by Pulse Oximetry: 95 (Room air) Pulse Ox Interpretation: Normal Progress Note: Crisis contacted. ED OBSERVATION Date of observation admission: 11/25/16 Time of observation admission: 23:40 - Observation admission statement Patient is being placed in observation because:: acute alcohol intoxication - Goals of Observation Goals of observation are:: detox, sobriety - Progress Note Progress Note: 11/25/16 23:40 vitals stable 11/26/16 00:53 no complaints Disposition Discussed With Dr.: Berenice Pinzon Comment: accepted the pt on his service and took over the care at 2:47 AM Doctor Will See Patient In The: Hospital Counseled Patient/Family Regarding: Studies Performed, Diagnosis - Disposition Disposition: HOSPITALIZED Disposition Time: 22:34 Condition: FAIR Forms: [facility] (Greek) - Clinical Impression Clinical Impression: Alcohol intoxication - Scribe Statement The provider has reviewed the documentation as recorded by the Scribgerry King All medical record entries made by the Scribe were at my direction and personally dictated by me. I have reviewed the chart and agree that the record accurately reflects my personal performance of the history, physical exam, medical decision making, and the department course for this patient. I have also personally directed, reviewed, and agree with the discharge instructions and disposition. Decision To Admit - Pt Status Changed To: Hospital Disposition Of: Inpatient - Admit Certification Admit to Inpatient:: After my assessment, the patient will require hospitalization for at least two midnights. This is because of the severity of symptoms shown, intensity of services needed, and/or the medical risk in this patient being treated as an outpatient. - InPatient: Physician Admission Certification: I certify that this patient requires 2 or more midnights of care for the following reason:: After my assessment, the patient will require hospitalization for at least two midnights. This is because of the severity of symptoms shown, intensity of services needed, and/or the medical risk in this patient being treated as an outpatient. - . Bed Request Type: Detox Admitting Physician: Berenice Pinzon Patient Diagnosis: Alcohol intoxication
[2016-11-25 22:44] LABS: BASO % 1.3 % (0.0-2.0); EOS # 0.2 K/uL (0.0-0.7); EOS % 5.4 % (0.0-4.0); HEMATOCRIT 41.3 % (35.0-51.0); LYMPH % 28.1 % (20.0-40.0); MEAN CELL VOLUME 89.9 fL (80.0-94.0); MEAN CORPUSCULAR HEMOGLOBIN 30.6 pg (27.0-31.0); MEAN CORPUSCULAR HGB CONC 34.1 g/dL (33.0-37.0); MONO # 0.4 K/uL (0.0-0.8); MONO % 10.8 % (0.0-10.0); NRBC % 0.1 % (0.0-2.0); RED CELL DISTRIBUTION WIDTH 14.2 % (11.5-14.5); WHITE BLOOD COUNT 3.7 K/uL (4.8-10.8)
[2016-11-25 22:47] LABS: URINE BILIRUBIN NEGATIVE (NEGATIVE); URINE BLOOD NEGATIVE (NEGATIVE); URINE COLOR Straw (YELLOW); URINE GLUCOSE (UA) NORMAL (Normal); URINE KETONE NEGATIVE (NEGATIVE); URINE LEUKOCYTE ESTERASE TRACE Leu/uL (Negative); URINE PROTEIN NEGATIVE (NEGATIVE); URINE UROBILINOGEN NORMAL mg/dL (0.2-1.0); WBC URINE < 1 /hpf (0-5)
[2016-11-25 22:55] LABS: ALB/GLOB RATIO 1.2 (1.0-2.1); ALKALINE PHOSPHATASE 83 U/L (38-126); ALT/SGPT 75 U/L (21-72); AST/SGOT 128 U/L (17-59); BILIRUBIN,TOTAL 0.3 mg/dL (0.2-1.3); BLOOD UREA NITROGEN 6 mg/dL (9-20); CALCIUM 8.4 mg/dl (8.6-10.4); CARBON DIOXIDE 26 mmol/L (22-30); CHLORIDE 96 mmol/L (98-107); GFR AFRICAN-AMERICAN > 60; GLUCOSE,RANDOM 85 mg/dL (75-110); SODIUM 136 mmol/L (132-148); TOTAL PROTEIN 7.3 g/dL (6.3-8.3)
[2016-11-25 23:05] LABS: ALCOHOL SERUM 259 mg/dl (0-10)
--- NOTE | 2016-11-26 05:01 | PCM.BM ---
<Armida Sullivan Carlos - Last Filed: 11/26/16 04:58> Treatment Plan Problems - Problems identified on initial assessmt ALCOHOL DEPENDENCE Date Initiated: 11/26/16 Time Initiated: 05:00 Assessment reference: NA Status: Active Treatment assets and liabiliti Patient Assests: ADL independent Patient Liabilities: substance abuse, medical problems - Milieu Protocol Maintain good personal hygiene: daily Encourage regular showers, daily Remind patient to perform daily oral care, daily Assist patient to perform ADL's Maintain personal safety: every shift Educate patient to report safety concerns to staff, every shift Monitor environment for contraband/sharps Medication safety: Monitor for expected outcome, potential side effects: every shift, Assess barriers to learning: every shift, Assess readiness for medication education: every shift <Joann Muñoz - Last Filed: 11/26/16 10:32> Family Contact Family involvement: Patient does not wish Family/SO involvement Family contact: Patient agrees to contact - Goals for Treatment Patient goals for treatment: Transition from detox to 12-step meetings. Discharge/Continuing Care - Education Needs Education Needs: Patient Medication, Patient Diagnosis/Disease Process, Patient Coping Skills, Patient Anger Management skills, Patient Placement options, Patient Community resources, Patient Health Practices/Safety - Discharge Discharge Criteria: Tolerates medication w/o severe side effects, Normal sleep pattern, Ability to care for self, No longer exhibiting s/s of withdrawal, Reduction of target symptoms Discharge to:: With Family - Treatment Team Participation Patient/Family/SO Statement: 11/26/16 10:33 "I only wanna do meetings but I'll think about outpatient". Discussed with Family/SO: No Was Patient/Family/SO present at Treatment Team Meeting: Yes <Jennifer Beebe - Last Filed: 11/26/16 17:32> - Diagnosis (1) Alcohol use disorder, severe, dependence Status: Acute Interventions: 11/26/16 17:32 * Assess 7x/week regarding severity of withdrawal * Educate regarding risks, benefits, side effects and alternatives of medications * Use Motivational Interviewing for abstinence * Use CBT for relapse prevention * Medication management for withdrawal symptoms * Encourage medication assisted treatment *
[2016-11-26] MEDS ORDERED: Albuterol HFA 90 mcg/actuation (8 g) INH PRN (10:07)
[2016-11-26] MEDS: Tmp-Smz 800 mg-160 mg DS Tab PO SCH ×2 (10:52→21:57)
[2016-11-26] MEDS: Multiple Vitamins Tab PO SCH (10:53)
[2016-11-26] MEDS: ODEFSEY PO SCH (10:54)
--- NOTE | 2016-11-26 14:44 | PCM.PSYCH ---
Initial Psychiatric Evaluation - Initial Psychiatric Evaluation Type of Admission: Voluntary Chief Complaint (in patient's own words): "I need help with my drinking problem" Patient's Reaction to Hospitalization: cooperative History of Present Illness and Precipitating Events: The patient was seen, the chart was reviewed and the case was discussed. Mr Tucker is a 41 year old male who presented to the ED requesting detox from EtOH with last drink 2 hours prior. During our interview he denied any withdrawal symptoms. He states for the last 6 years he's been drinking 3 pints of vodka per day. He says his first drink was at the age of 9 but that it 's only became a problem 6 years ago. He's been to detox about 10 times. He denied a history of delerium tremens or seizures. He says his longest period of sobriety from EtOH was 3 years, which he says occurred without assistance. He been to rehab in past and says he's currently not interested in going to rehab and only wants to go to AA meetings. He was undecided about IOP treatment. He admits to feeling depressed and having anxiety but says he's never been prescribed psychiatric medication. He denied suicidal ideation. He admits to a history of heroin use, snorting 15 bags/day, but states he's been clean since 2004. Admits to marijuana use, 1/4 ounce/week. He denies benzodiazapine use, he denies lsd, pcp, ecstasy use. Pyschiatric Hx: alcohol use disorder; hx of opioid use disorder, last heroin use was 2004 Other Medical Hx: HIV positive, diagnosed in 2000 - does not know current CD4 count - recently started HAART therapy Allergies: NKA Social hx: single; no children; lives w/ friends or family or abdalla or shelters ; daily marijuana use - 1/4 ounce/week; smokes cigarettes everyday Fam Hx: denies Insurance: Medicaid Current Medications: Active Medications Generic Name Dose Route Start Last Admin Trade Name Freq PRN Reason Stop Dose Admin Albuterol 1 puff 11/26/16 10:07 Ventolin Hfa 90 Mcg/Actuation (8 G) INH RQ4 PRN sob Clonidine HCl 0.1 mg 11/26/16 06:25 11/26/16 13:23 Catapres PO 0.1 mg Q6H PRN Administration Symptoms of alcohol withdrawl Folic Acid 1 mg 11/26/16 10:00 11/26/16 10:53 Folic Acid PO 1 mg DAILY SONYA Administration Gabapentin 400 mg 11/26/16 14:00 11/26/16 13:23 Neurontin PO 400 mg TID SONYA Administration Home Med 1 tab 11/26/16 10:00 11/26/16 10:54 Patient's Own Medication PO 1 tab DAILY SONYA Administration Hydroxyzine HCl 25 mg 11/26/16 06:28 Atarax PO Q6 PRN anxiety Ibuprofen 600 mg 11/26/16 06:30 Motrin Tab PO Q6 PRN Pain, moderate (4-7) Lorazepam 2 mg 11/26/16 10:00 11/26/16 10:49 Ativan PO 11/30/16 09:59 Not Given Q6H SONYA Taper Lorazepam 1 mg 11/26/16 09:52 11/26/16 13:26 Ativan PO 1 mg Q4H PRN Administration Symptoms of alcohol withdrawl Mirtazapine 30 mg 11/26/16 22:00 Remeron PO HS SONYA Multivitamins 1 tab 11/26/16 10:00 11/26/16 10:53 Hexavitamin PO 1 tab DAILY SONYA Administration Ondansetron HCl 4 mg 11/26/16 06:31 Zofran Tab PO Q6 PRN Nausea/Vomiting Pneumococcal Polyvalent Vaccine 0.5 ml 11/29/16 10:15 Pneumovax 23 Vaccine IM 11/29/16 10:16 .ONCE ONE Thiamine HCl 100 mg 11/26/16 10:00 11/26/16 10:53 Vitamin B1 Tab PO 100 mg DAILY SONYA Administration Trazodone HCl 100 mg 11/26/16 09:52 Desyrel PO HS PRN Insomnia Trimethoprim/Sulfamethoxazole 1 tab 11/26/16 10:15 11/26/16 10:52 Bactrim Ds Tab PO 1 tab Q12H SONYA Administration Past Psychiatric History - Past Psychiatric History Prior Professional Help: detox 10x; rehab attempted Prior Psychiatric Treatment: denies History of ETOH/Drug Use: as described in hpi History of Family Illness: denies Pertinent Medical Hx (Current Medical&Sleep Prob, Allergies): Allergies Allergy/AdvReac Type Severity Reaction Status Date / Time No Known Allergies Allergy Verified 10/10/16 16:00 Emtricitab/Rilpiviri/Tenof Ala [Odefsey Tablet] 1 each PO DAILY 10/10/16 Gabapentin [Neurontin] 300 mg PO TID 11/25/16 Mirtazapine [Remeron] 30 mg PO HS 11/25/16 Sulfamethoxazole/Trimethoprim [Bactrim DS 800 mg-160 mg] 1 tab PO DAILY Review of Systems - Psychiatric Psychiatric: Anxiety, Depression. absent: Auditory Hallucinations, Difficulty Concentrating, Homicidal Ideation, Irritability, Suicidal Ideation, Visual Hallucinations Mental Status Examination - Personal Presentation Personal Presentation: Looks stated age - Affect Affect: Broad - Motor Activity Motor Activity: Calm - Reliability in Providing Information Reliability in Providing Information: Good - Speech Speech: Organized - Mood Mood: Depressed - Formal Thought Process Formal Thought Process: No Impairment - Obsessions/Compulsions Obsessions: No Compulsions: No - Cognitive Functions Orientation: Person, Place, Situation, Time Sensorium: Alert Attention/Concentration: Attentive Abstract Thinking: [place] Estimate of Intelligence: Average Judgement: Intact, as evidence by: Insight regarding need for hospitalization Memory: Recent intact, as evidence by: Ability to recall events of the day - Risk Risk: Withdrawal - Strength & Assets Inventory Strength & Assets Inventory: Family support, Other (hx of sobriety) - Limitations Limitations: Other (refuses rehab) DSM 5 DX - DSM 5 DSM 5 Diagnosis: Alcohol withdrawal alcohol use disorder Tobacco use d/o - Recommended/Plan of Treatment Treatment Recommendations and Plan of Treatment: benzodiazipine taper clonidine 0.1mg po q6 prn folic acid 1mg po daily gabapentin 400mg po tid hydroxyzine 25mg po q6 prn for anxiety lorazepam 2mg po q6 lorazepam 1mg po q4 prn mirtazapine 30mg po hs multivitamins 1 tab po daily thiamine 100mg po daily trazodone 100mg po hs prn for insomnia Attend groups and activities [place] for abstinence and CBT for relapse prevention Support and psychoeducation Consider and encourage MAT Coordinate AA meetings upon discharge After care planning by TUCKER time spent: 33 mins Projected ELOS: 5-6 days Prognosis: good with tx course
[2016-11-27 06:25] VITALS: RESP 20
[2016-11-27] MEDS: Multiple Vitamins Tab PO SCH (09:49)
[2016-11-27] MEDS: ODEFSEY PO SCH (09:52)
[2016-11-27] MEDS: Tmp-Smz 800 mg-160 mg DS Tab PO SCH (09:52)
[2016-11-27 10:28] VITALS: BP 151/103; PULSE 83; TEMP 97.8; O2SAT 100
--- NOTE | 2016-11-27 16:05 | PCM.PYCHDC ---
Mental Status Examination - Mental Status Examination Orientation: Person, Place, Situation, Time Memory: Intact Mood: Anxious Affect: Broad Speech: Appropriate, Loud Attention: WNL Concentration: WNL Language: Word Retrieval Association: WNL Fund of Knowledge: WNL Formal Thought Process: No Impairment Description of patient's judgement and insight: poor judgement due to lack of insight regarding need for hospitalization Suicidal Ideation: No Current Homicidal Ideation?: No Discharge Summary - Discharge Note Reason for Hospitalization: EtOH detox Consultations:: List each consultation separately and include: 1. Reason for request. 2. Findings. 3. Follow-up Summary of Hospital Course include:: 1. Description of specific treatment plan utilized for patients during their course of treatmen. 2. Summarize the time- course for resolution of acute symptoms and/or regressed behaviors. 3. Describe issues identified and worked on during hospitalization. 4. Describe medication utilized. 5. Describe medical problems identified and treated. 6. Reassessment of suicide risk Summary of Hospital Course: The patient was seen, the chart was reviewed and the case was discussed. Mr Tucker is a 41 year old male who presented to the ED requesting detox from EtOH with last drink 2 hours prior. During our interview he denied any withdrawal symptoms. He states for the last 6 years he's been drinking 3 pints of vodka per day. He says his first drink was at the age of 9 but that it 's only became a problem 6 years ago. He's been to detox about 10 times. He denied a history of delerium tremens or seizures. He says his longest period of sobriety from EtOH was 3 years, which he says occurred without assistance. He been to rehab in past and says he's currently not interested in going to rehab and only wants to go to AA meetings. He was undecided about IOP treatment. He admits to feeling depressed and having anxiety but says he's never been prescribed psychiatric medication. He denied suicidal ideation. He admits to a history of heroin use, snorting 15 bags/day, but states he's been clean since 2004. Admits to marijuana use, 1/4 ounce/week. He denies benzodiazapine use, he denies lsd, pcp, ecstasy use. Pyschiatric Hx: alcohol use disorder; hx of opioid use disorder, last heroin use was 2004 Other Medical Hx: HIV positive, diagnosed in 2000 - does not know current CD4 count - recently started HAART therapy Allergies: NKA Social hx: single; no children; lives w/ friends or family or abdalla or shelters ; daily marijuana use - 1/4 ounce/week; smokes cigarettes everyday Fam Hx: denies Insurance: Medicaid Detox Course: Ativan taper gabapentin for augmentation As needed meds and vitamins Attend groups and activities [place] for abstinence and CBT for relapse prevention Support and psychoeducation Consider and encourage MAT Coordinate AA meetings upon discharge After care planning by TUCKER - Diagnosis (1) Alcohol use disorder, severe, dependence Status: Acute Priority: High (2) Alcohol intoxication Status: Acute Priority: High (3) Psychotic disorder Assessment and Plan: Auditory hallucinations haldol 5mg po once Status: Acute - Final Diagnosis (DSM 5) Condition upon Discharge: FAIR DSM 5: alcohol withdrawal alcohol use disorder psychotic disorder, unspecified Disposition: AGAINST MEDICAL ADVICE Follow-up Treatment Plan: Patient left against medical advice - he stated he was forced to come to detox by his sister. He said he would rather detox in the comfort of his home with his dogs. 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 We spent considerable time trying to convince the patient to continue detox here but he was unconvinced. We encouraged him to return if symptoms worsen or if he wants to re-try detox here. time spent: 33 mins - Antipsychotic Medications Pt discharged on 2 or more routine antipsychotic medications: No
[2016-11-29] MEDS ORDERED: Pneumococcal 23-Valent Vaccine IM ONE (10:15)
== END 2016-11-27 11:00 | disposition left against medical advice (07) | DRG 749 ==
LOC: C.ER 21:31 → C.7D 11-26 02:45
PROVIDERS: ADMIT Psychiatry & Neurology Psychiatry; ATTEND Psychiatry & Neurology Psychiatry
DX: F10.239 Alcohol dependence with withdrawal, unspecified (principal); F29 Unspecified psychosis not due to a substance or known physiological condition

== ENCOUNTER 2017-06-18 13:32 | Inpatient (IN) | payer MEDICAID, OTHER ==
[2017-06-18 13:33] VITALS: BMI 22.8
[2017-06-18 15:00] LABS: SQUAMOUS EPITHIAL < 1 /hpf (0-5); URINE BILIRUBIN NEGATIVE (NEGATIVE); URINE BLOOD NEGATIVE (NEGATIVE); URINE CLARITY Clear (Clear); URINE COLOR Straw (YELLOW); URINE GLUCOSE (UA) NORMAL (Normal); URINE LEUKOCYTE ESTERASE NEG Leu/uL (Negative); URINE NITRATE NEGATIVE (NEGATIVE); URINE PROTEIN NEGATIVE (NEGATIVE); URINE UROBILINOGEN NORMAL mg/dL (0.2-1.0)
[2017-06-18 15:08] LABS: ALB/GLOB RATIO 1.1 (1.0-2.1); ALBUMIN 4.2 g/dL (3.5-5.0); ALT/SGPT 86 U/L (21-72); AST/SGOT 107 U/L (17-59); BLOOD UREA NITROGEN 4 mg/dL (9-20); CALCIUM 8.3 mg/dl (8.6-10.4); GFR AFRICAN-AMERICAN > 60; GFR NON-AFRICAN AMERICAN > 60
[2017-06-18 15:09] LABS: BARBITURATES, UR NEGATIVE (NEGATIVE); BENZODIAZEPINES, UR NEGATIVE (NEGATIVE); OPIATES, UR NEGATIVE (NEGATIVE); PHENCYCLIDINE, UR NEGATIVE (NEGATIVE)
[2017-06-18 15:11] LABS: BASO # 0.1 K/uL (0.0-0.2); BASO % 2.7 % (0.0-2.0); EOS # 0.1 K/uL (0.0-0.7); EOS % 2.7 % (0.0-4.0); HEMOGLOBIN 14.6 g/dL (12.0-18.0); LYMPH # 0.7 K/uL (1.0-4.3); LYMPH % 20.2 % (20.0-40.0); MEAN CELL VOLUME 91.6 fL (80.0-94.0); MEAN CORPUSCULAR HEMOGLOBIN 31.6 pg (27.0-31.0); MEAN CORPUSCULAR HGB CONC 34.5 g/dL (33.0-37.0); MEAN PLATELET VOLUME 9.8 fL (7.2-11.7); MONO # 0.3 K/uL (0.0-0.8); MONO % 8.4 % (0.0-10.0); NEUT # 2.2 K/uL (1.8-7.0); NRBC % 0.1 % (0.0-2.0); RBC 4.62 Mil/uL (4.40-5.90); RED CELL DISTRIBUTION WIDTH 13.7 % (11.5-14.5); WHITE BLOOD COUNT 3.3 K/uL (4.8-10.8)
--- NOTE | 2017-06-18 16:28 | C.PDOC ---
History Of Present Illness 41-year-old male, PMHx includes Alcohol abuse, presents to the emergency department requesting detox from alcohol. Patients last drink was today. Denies vomiting, fever, weakness, tremors, SI/HI. No other complaint. Time Seen by Provider: 06/18/17 14:25 Chief Complaint (Nursing): Substance Abuse History Per: Patient History/Exam Limitations: no limitations Past Medical History Reviewed: Historical Data, Nursing Documentation, Vital Signs Vital Signs: Last Vital Signs Temp 97.5 F L 06/18/17 15:58 Pulse 85 06/18/17 15:58 Resp 18 06/18/17 15:58 BP 108/61 06/18/17 15:58 Pulse Ox 95 06/18/17 18:12 - Medical History PMH: Anxiety, Depression, HIV, HTN - [facility] CLOSURE SKIN & SUBCUTANEOUS NEC (11/18/14) DETOXIFICATION SERVICES FOR SUBSTANCE ABUSE TREATMENT (10/10/16) Family History: States: No Known Family Hx - Social History Hx Alcohol Use: Yes Hx Substance Use: Yes - Immunization History Hx Tetanus Toxoid Vaccination: No Hx Influenza Vaccination: No Hx Pneumococcal Vaccination: No Review Of Systems Constitutional: Negative for: Fever, Chills Cardiovascular: Negative for: Chest Pain Respiratory: Negative for: Shortness of Breath Gastrointestinal: Negative for: Nausea, Vomiting, Abdominal Pain, Diarrhea Musculoskeletal: Negative for: Back Pain Neurological: Negative for: Weakness, Numbness, Headache, Dizziness Psych: Negative for: Suicidal ideation, Withdrawal Physical Exam - Physical Exam Appears: Non-toxic, No Acute Distress, Other (calm and cooperative.) Skin: Normal Color, Warm, Dry, No Rash, No Jaundice Head: Normacephalic Eye(s): bilateral: PERRL Nose: Normal Oral Mucosa: Moist Neck: Normal ROM Cardiovascular: Rhythm Regular, No Murmur Extremity: Normal ROM, Capillary Refill (<2 seconds), No Deformity, No Swelling Neurological/Psych: Other (No tremors) ED Course And Treatment - Laboratory Results Result Diagrams: 06/18/17 14:47 06/18/17 14:47 O2 Sat by Pulse Oximetry: 95 (RA) Pulse Ox Interpretation: Normal Progress Note: Patient is admited under Dr. Beebe for alcohol abuse. Medical Decision Making Medical Decision Making: Plan: * Labs * UA * Crisis evaluation * Reassess and Disposition Patient is medically cleared. Disposition Discussed With DrBob: Jennifer Beebe Counseled Patient/Family Regarding: Studies Performed, Diagnosis - Disposition Disposition: HOSPITALIZED Disposition Time: 18:12 Condition: FAIR Forms: [facility] (Eth[place]ian) - Clinical Impression Clinical Impression: Alcohol use disorder, severe, dependence - Scribe Statement The provider has reviewed the documentation as recorded by the Scribe (Carlos Celis) All medical record entries made by the Scribe were at my direction and personally dictated by me. I have reviewed the chart and agree that the record accurately reflects my personal performance of the history, physical exam, medical decision making, and the department course for this patient. I have also personally directed, reviewed, and agree with the discharge instructions and disposition.
--- NOTE | 2017-06-18 18:56 | PCM.BM ---
<RyanAlexsandra - Last Filed: 06/18/17 18:55> Treatment Plan Problems - Problems identified on initial assessmt Potential for alochol withdrawal Date Initiated: 06/18/17 Time Initiated: 18:55 Assessment reference: NA Status: Active Priority: 1 Treatment assets and liabiliti Patient Assests: ADL independent, negotiates basic needs, cognitively intact Patient Liabilities: substance abuse (alcohol), medical problems (HIV+) - Milieu Protocol Maintain good personal hygiene: daily Encourage regular showers, daily Remind patient to perform daily oral care, daily Assist patient to perform ADL's Conduct patient checks and document Observation sheet: Q15 minutes Maintain personal safety: every shift Educate patient to report safety concerns to staff, every shift Monitor environment for contraband/sharps Medication safety: Monitor for expected outcome, potential side effects: every shift, Assess barriers to learning: every shift, Assess readiness for medication education: every shift <Jennifer Beebe - Last Filed: 06/19/17 13:59> - Diagnosis (1) Alcohol use disorder, severe, dependence Status: Acute Interventions: 06/19/17 13:59 * Assess 7x/week regarding severity of withdrawal * Educate regarding risks, benefits, side effects and alternatives of medications * Use Motivational Interviewing for abstinence * Use CBT for relapse prevention * Medication management for withdrawal symptoms * Encourage medication assisted treatment *
[2017-06-19] MEDS ORDERED: Tmp-Smz 800 mg-160 mg DS Tab PO SCH (10:00)
[2017-06-19] MEDS ORDERED: Odefsey 200mg/25mg/25mg PO SCH (10:00)
--- NOTE | 2017-06-19 10:27 | PCM.PSYCH ---
Initial Psychiatric Evaluation - Initial Psychiatric Evaluation Type of Admission: Voluntary Legal Status: Capacity Chief Complaint (in patient's own words): "I need to stop drinking" History of Present Illness and Precipitating Events: The patient was seen, the chart was reviewed and the case was discussed. He is known from previous admissions. 2 pints Mr Tucker is a 41 year old male, single with no child, lives with family or in a long-term, who presented to the ED requesting detox from EtOH. His BAL was 290+ He states for the last 6 years he's been drinking 2-3 pints of vodka per day. lately 2 pints/day. He says his first drink was at the age of 9 but that it's only became a problem 6 years ago. He's been to detox about 10 times. He denied a history of delirium tremens or seizures. He says his longest period of sobriety from EtOH was 3 years, which he says occurred without assistance. He been to rehab in past and he again says he's currently not interested in going to rehab or IOP, much. He admits to feeling depressed and having some anxiety but he is no longer hearing voices. He denied suicidal ideation. He admits to a history of heroin use, snorting 15 bags/day, but states he's been clean since 2004. Admits to marijuana use, 1/4 ounce/week. He denies benzodiazapine use, he denies lsd, pcp, ecstasy use. Pyschiatric Hx: He is vague about this but he claims he has been depresed and hearing voices, getting paranid with or without alcohol in the past. No jose miguel attempts. Non-compliant with meds Other Medical Hx: HIV positive, diagnosed in 2000 - does not know current CD4 count - recently resumed HAART therapy. He seems to be more focued on getting traetment for what he thinks are HIV-related issues, ie neuropathy, some small lesion in his head, which is also why he is refusing proper after care. Allergies: NKA Fam Hx: denies Current Medications: Active Medications Generic Name Dose Route Start Last Admin Trade Name Freq PRN Reason Stop Dose Admin Chlordiazepoxide 25 mg 06/19/17 00:00 06/19/17 06:33 Librium PO 06/22/17 23:59 25 mg Q6H SONYA Administration Taper Chlordiazepoxide 25 mg 06/18/17 20:39 06/18/17 22:27 Librium PO 25 mg Q4H PRN Administration Alcohol Withdrawal Clonidine HCl 0.1 mg 06/18/17 20:39 Catapres PO Q4H PRN Symptoms of alcohol withdrawl Gabapentin 300 mg 06/19/17 14:00 Neurontin PO TID SONYA Home Med 1 tab 06/19/17 10:00 Patient's Own Medication PO DAILY SONYA Hydroxyzine HCl 50 mg 06/19/17 10:20 Atarax PO Q6H PRN Anxiety Ibuprofen 600 mg 06/18/17 20:45 Motrin Tab PO Q6H PRN Pain, moderate (4-7) Mirtazapine 30 mg 06/18/17 22:00 06/18/17 22:25 Remeron PO 30 mg HS SONYA Administration Trazodone HCl 100 mg 06/18/17 20:45 06/18/17 22:25 Desyrel PO 100 mg HS PRN Administration Insomnia Trimethoprim/Sulfamethoxazole 1 tab 06/19/17 10:00 06/19/17 09:32 Bactrim Ds Tab PO 1 tab DAILY SONYA Administration Past Psychiatric History - Past Psychiatric History Previous Treatment History: Intensive Outpatient Pertinent Medical Hx (Current Medical&Sleep Prob, Allergies): Allergies Allergy/AdvReac Type Severity Reaction Status Date / Time No Known Allergies Allergy Verified 06/18/17 13:59 Emtricitab/Rilpiviri/Tenof Ala [Odefsey Tablet] 1 each PO DAILY 10/10/16 Gabapentin [Neurontin] 300 mg PO TID 11/25/16 Mirtazapine [Remeron] 30 mg PO HS 11/25/16 Sulfamethoxazole/Trimethoprim [Bactrim DS 800 mg-160 mg] 1 tab PO DAILY traZODone [trazodone Hydrochloride] 100 mg PO HS 06/18/17 Review of Systems - Neurological Neurological: UNREMARKABLE - Psychiatric Psychiatric: Abnormal Sleep Pattern, Anxiety, Change in Appetite, Depression, Difficulty Concentrating, Irritability. absent: Hallucinations, Homicidal Ideation, Suicidal Ideation Mental Status Examination - Personal Presentation Personal Presentation: Looks stated age - Affect Affect: Constricted - Motor Activity Motor Activity: Calm - Reliability in Providing Information Reliability in Providing Information: Fair - Speech Speech: Organized - Mood Mood: Depressed, Anxious - Formal Thought Process Formal Thought Process: No Impairment - Cognitive Functions Orientation: Person, Place, Situation, Time Sensorium: Alert Attention/Concentration: Easily distracted Estimate of Intelligence: Average Judgement: Intact, as evidence by: Insight regarding need for hospitalization Memory: Recent intact, as evidence by: Ability to recall events of the day, Remote intact, as evidenced by: Abilit to recall sig. life events - Risk Risk: Seizure, Withdrawal, Diminished functioning - Strength & Assets Inventory Strength & Assets Inventory: Family support, Cooperative - Limitations Limitations: Living alone DSM 5 DX - DSM 5 DSM 5 Diagnosis: Alcohol withdrawal Alcohol use d/o- severe Major depressive d/o - moderate - Recommended/Plan of Treatment Treatment Recommendations and Plan of Treatment: Start taper with librium Gabapentin for augmentation Seroquel for insomnia and depressive sxs. As needed medications All risks, benefits and alternatives of the meds discussed, and the pt agreed and understood. Attend groups and activities Supportive therapy and psychoeducation OK for abstinence CBT for relapse prevention Encourage MAT Refer to rehab or IOP, and self-help groups Smoking cessation with OK Nicotine patch if needed 34 min Projected ELOS: 45 days Prognosis: good - Smoking Cessation Smoking Cessation Initiated: Yes
[2017-06-19 11:11] VITALS: RESP 18
[2017-06-19 16:22] VITALS: BP 145/96; PULSE 65; TEMP 98.2; O2SAT 95
--- NOTE | 2017-06-21 17:21 | PCM.PYCHDC ---
Mental Status Examination - Mental Status Examination Orientation: Person, Place, Situation, Time Memory: Intact Mood: Neutral Affect: Constricted Speech: Soft Attention: WNL Concentration: WNL Association: WNL Fund of Knowledge: WNL Formal Thought Process: No Impairment Suicidal Ideation: No Current Homicidal Ideation?: No Discharge Summary - Discharge Note Consultations:: List each consultation separately and include: 1. Reason for request. 2. Findings. 3. Follow-up Summary of Hospital Course include:: 1. Description of specific treatment plan utilized for patients during their course of treatmen. 2. Summarize the time- course for resolution of acute symptoms and/or regressed behaviors. 3. Describe issues identified and worked on during hospitalization. 4. Describe medication utilized. 5. Describe medical problems identified and treated. 6. Reassessment of suicide risk - Final Diagnosis (DSM 5) Condition upon Discharge: FAIR Disposition: AGAINST MEDICAL ADVICE
== END 2017-06-19 20:27 | disposition left against medical advice (07) | DRG 715 ==
LOC: C.ER 13:32 → C.7D 18:41
PROVIDERS: ADMIT Psychiatry & Neurology Psychiatry; ATTEND Psychiatry & Neurology Psychiatry
PROC: HZ2ZZZZ Detoxification Services for Substance Abuse Treatment (ICD-10-PCS; principal; 2017-06-18)
PROC: HZ52ZZZ Individual Psychotherapy for Substance Abuse Treatment, Cognitive-Behavioral (ICD-10-PCS; 2017-06-18)
PROC: HZ59ZZZ Individual Psychotherapy for Substance Abuse Treatment, Supportive (ICD-10-PCS; 2017-06-18)
PROC: HZ56ZZZ Individual Psychotherapy for Substance Abuse Treatment, Psychoeducation (ICD-10-PCS; 2017-06-18)
PROC: HZ42ZZZ Group Counseling for Substance Abuse Treatment, Cognitive-Behavioral (ICD-10-PCS; 2017-06-18)
PROC: HZ46ZZZ Group Counseling for Substance Abuse Treatment, Psychoeducation (ICD-10-PCS; 2017-06-18)
DX: F10.230 Alcohol dependence with withdrawal, uncomplicated (principal); Z21 Asymptomatic human immunodeficiency virus [HIV] infection status; F32.9 Major depressive disorder, single episode, unspecified; F41.9 Anxiety disorder, unspecified; Z91.14 Patient's other noncompliance with medication regimen; I10 Essential (primary) hypertension; Y90.8 Blood alcohol level of 240 mg/100 ml or more; L98.9 Disorder of the skin and subcutaneous tissue, unspecified; G47.00 Insomnia, unspecified